=== PATIENT | female | born 1965 | race Caucasian/White ===

== ENCOUNTER 2017-03-25 08:52 | Emergency (ER) | payer OTHER ==
[2017-03-25 09:40] LABS: BILIRUBIN NEGATIVE (NEGATIVE); BLOOD 3+ Ery/uL (NEGATIVE); CLARITY CLEAR (CLEAR); COLOR YELLOW (YELLOW); GLUCOSE (U) NORMAL (NORMAL); KETONE (U) NEGATIVE (NEGATIVE); LEUKOCYTES NEGATIVE Leu/uL (NEGATIVE); NITRITE NEGATIVE (NEGATIVE); PROTEIN NEGATIVE (NEGATIVE); UROBILINOGEN 0.2 mg/dL (0.2-1.0)
[2017-03-25 09:42] LABS: BASOPHIL 0.2 % (0-2); EOSINOPHIL 0.6 % (0-5); HCT 40.4 % (37.0-47.0); HGB 13.9 g/dl (12.5-16.0); LYMPHOCYTE 10.3 % (15-48); MCH 34.5 pg (25.0-31.0); MCHC 34.4 g/dL (32.0-36.0); MCV 100.2 fL (78.0-100.0); MONOCYTE 5.5 % (0-12); NEUTROPHIL 83.4 % (41-80); PLT 228 K/uL (150-400); RBC 4.03 M/uL (4.20-5.40); RDW 12.3 % (11.5-14.0); WBC 10.7 K/uL (4.0-10.5)
[2017-03-25 09:47] LABS: BACTERIA TRACE
[2017-03-25 09:55] LABS: AMPHETAMINES NEGATIVE (NEGATIVE); BARBITURATES NEGATIVE (NEGATIVE); BENZODIAZEPINES NEGATIVE (NEGATIVE); COCAINE NEGATIVE (NEGATIVE); MARIJUANA (THC) NEGATIVE (NEGATIVE); METHADONE NEGATIVE (NEGATIVE); TRICYCLIC ANTIDEPRESSANT NEGATIVE (NEGATIVE)
[2017-03-25 09:56] LABS: INR 0.96 (0.9-1.2); PROTHROMBIN TIME 12.4 SECONDS (11.7-14.0); PTT 24.4 SECONDS (23.2-31.4)
[2017-03-25 10:11] LABS: ALBUMIN 4.3 g/dL (3.5-5.0); BILIRUBIN - TOTAL 0.3 mg/dL (0.1-1.0); CREATININE 0.9 mg/dL (0.5-1.0); GLOBULIN (CALCULATION) 3.2 g/dL (2.2-4.2); TOTAL PROTEIN 7.5 g/dL (6.4-8.3)
== END 2017-03-25 15:32 | disposition home or self-care (01) ==
LOC: FER 08:52
PROVIDERS: Internal Medicine
DX: N13.2 Hydronephrosis with renal and ureteral calculous obstruction (principal); Z84.1 Family history of disorders of kidney and ureter; Z83.79 Family history of other diseases of the digestive system
CPT/HCPCS: 36415; 80053; 80305; 81001; 83690; 85025; 85610; 85730; 86140